=== PATIENT | female | born 1995 | race Caucasian/White ===

== ENCOUNTER 2023-11-06 16:05 | Observation (INO) | payer OTHER ==
[~2023-11-06] VITALS: Ht 167.6 cm; Wt 108.9 kg
[2023-11-06 16:21] VITALS: BP 111/65
[2023-11-06 16:50] LABS: Source, Urine Clean Catch
[2023-11-06 17:00] LABS: Appearance, Urine Hazy (Clear); Bilirubin, Urine Neg (Neg); Blood, Urine 1+ (Neg); Color, Urine Yellow (P-Yellow); Glucose Qualitative, Urine Neg (Neg); Ketones, Urine Neg (Neg); Leukocyte Esterase, Urine 2+ (Neg); Nitrite, Urine Pos (Neg); Protein, Urine Neg (Neg); Urobilinogen, Urine NORM (Normal)
[2023-11-06 17:16] LABS: Bacteria Many /hpf; Red Blood Cells, Urine 0-2 /hpf (0-2); Squamous Epithelial Cells Mod /hpf (Few); White Blood Cells, Urine 25-50 /hpf (0-5)
[2023-11-06 17:17] LABS: U Amphetamine Screen Not Detected; U Barbituate Screen Not Detected; U Benzodiazapine Screen Not Detected; U Buprenorphine Screen Not Detected; U Cannabinoids Screen Not Detected; U Cocaine Screen Not Detected; U Methadone Screen Not Detected; U Methamphetamine Screen Not Detected; U Opiates Screen Not Detected; U Oxycodone Screen Not Detected; U Phencyclidine Screen Not Detected
[2023-11-06] MEDS ORDERED: LORazepam 1 MG Tab PO ONE (17:55)
[2023-11-06] MEDS ORDERED: BUPRENORPHINE HC8 MG PO (18:58)
[2023-11-06] MEDS ORDERED: Calcium Carbon500 MG PO (18:58)
[2023-11-06] MEDS ORDERED: METF500 PO (18:58)
[2023-11-06] MEDS ORDERED: Prednisone10 MG PO (18:58)
[2023-11-06] MEDS ORDERED: LEVSOD100 PO (18:59)
[2023-11-06] MEDS ORDERED: CYMBALTA60 M1 PO (18:59)
[2023-11-06] MEDS ORDERED: TRAZ50 (19:00)
[2023-11-06] MEDS ORDERED: BENZ1 PO (19:00)
[2023-11-06] MEDS ORDERED: Hydroxyzine HCl50 MG PO (19:01)
[2023-11-06] MEDS ORDERED: SERT100 PO (19:03)
== END 2023-11-06 19:32 | disposition home or self-care (01) ==
LOC: ER 16:05 → EOR 16:06
PROVIDERS: Student in an Organized Health Care Education/Training Program; ADMIT Emergency Medicine
DX: F32.A Depression, unspecified (principal); F41.9 Anxiety disorder, unspecified
CPT/HCPCS: 81001; 81025; 87077; 87086; 87186; 93005; 93010; 99285-25; A9270; G0378

== ENCOUNTER 2023-11-07 02:04 | Observation (INO) | payer OTHER ==
[~2023-11-07] VITALS: Ht 167.6 cm; Wt 111.1 kg
[~2023-11-07 02:04] MED LIST: BENZ1 PO; BUPRENORPHINE HC8 MG PO; CYMBALTA60 M1 PO; Calcium Carbon500 MG PO; Hydroxyzine HCl50 MG PO; LEVSOD100 PO; METF500 PO; Prednisone10 MG PO; SERT100 PO; TRAZ50
[2023-11-07] MEDS ORDERED: Naloxone HCl 1MG / ML 2ML SYR ONE (02:13)
[2023-11-07] MEDS ORDERED: DiphenhydrAMINE HCl 50 MG/ML 1ML Vial IM ONE (03:00)
[2023-11-07] MEDS ORDERED: LORazepam 2 MG/ML 1ML Injection IM ONE (03:00)
[2023-11-07] MEDS ORDERED: Haloperidol Lactate Inj. 5 MG/ML Injection IM ONE ×2 (03:00→04:40)
[2023-11-07 03:07] LABS: Ethanol (Alcohol), Blood, Med <3 mg/dL; Salicylate <1.7 mg/dL (2.8-20.0)
[2023-11-07 03:23] LABS: Alanine Aminotransfer (ALT/SGP 16 U/L (12-78); Albumin, Blood 3.4 g/dL (3.4-5.0); Albumin/Globulin Ratio 0.9 (0.8-1.8); Alk Phos 69 U/L (50-136); Anion Gap 9 mmol/L (3-11); Aspartate Aminotrans (AST/SGOT 14 U/L (12-37); Bilirubin, Total 0.4 mg/dL (0.1-1.0); Blood Urea Nitrogen 20 mg/dL (8-24); Bun/Creatinine Ratio 28.3 (12.0-20.0); CO2, Blood 25 mmol/L (21-32); Calcium, Blood 8.9 mg/dL (8.5-10.1); Chloride, Blood 110 mmol/L (98-108); Creatinine, Blood 0.71 mg/dL (0.40-1.00); Globulin, Blood 3.7 g/dL (2.2-4.0); Glomerular Filtration Rate 117 (60-); Glucose, Blood 110 mg/dL (70-99); Potassium, Blood 4.3 mmol/L (3.5-5.5); Sodium, Blood 140 mmol/L (136-145); Total Protein, Blood 7.1 g/dL (6.4-8.2)
[2023-11-07 03:24] LABS: Acetaminophen, Random <2.0 ug/mL (10.0-30.0)
[2023-11-07 03:38] LABS: BASOPHILS ABSOLUTE AUTO 0.04 K/mm3 (0.00-0.23); BASOPHILS PERCENT AUTO 0 % (0-2); EOSINOPHILS ABSOLUTE AUTO 0.29 K/mm3 (0.00-0.68); EOSINOPHILS PERCENT AUTO 2 % (0-6); Hematocrit 37.3 % (33.0-51.0); IMMATURE GRAN ABSOLUTE AUTO 0.06 K/mm3 (0.00-0.10); IMMATURE GRAN PERCENT AUTO 1 % (0-1); LYMPHOCYTES ABSOLUTE AUTO 3.15 K/mm3 (0.84-5.20); LYMPHOCYTES PERCENT AUTO 25 % (21-46); MONOCYTES ABSOLUTE AUTO 0.99 K/mm3 (0.16-1.47); MONOCYTES PERCENT AUTO 8 % (4-13); Mean Corpuscular HGB 28.6 pg (26.0-34.0); Mean Corpuscular HGB Conc 32.2 g/dL (31.5-36.5); Mean Corpuscular Volume 89 fL (80-100); NEUTROPHILS ABSOLUTE AUTO 8.32 K/mm3 (1.96-9.15); NEUTROPHILS PERCENT AUTO 65 % (41-73); NRBC ABSOLUTE 0.02 K/mm3 (0.00-0.02); NRBC Auto 0.2 /100 WBC (0.0-0.2); RDW Coefficient Variation 13.5 % (11.7-14.2); RDW Standard Deviation 44.1 fL (35.1-46.3); Red Blood Cell Count 4.19 M/mm3 (3.80-5.20); White Blood Cell Count 12.85 K/mm3 (4.00-11.30)
[2023-11-07 03:46] LABS: Mean Platelet Volume 9.3 fL (9.1-12.4)
[2023-11-07 04:21] LABS: Platelet Count 358 K/mm3 (150-400)
[2023-11-07 06:00] VITALS: BP 131/70
== END 2023-11-07 16:50 | disposition home or self-care (01) ==
LOC: ER 02:04 → EOR 02:05
PROVIDERS: ADMIT Emergency Medicine
DX: F31.9 Bipolar disorder, unspecified (principal); F43.10 Post-traumatic stress disorder, unspecified; F60.3 Borderline personality disorder; F43.25 Adjustment disorder with mixed disturbance of emotions and conduct; T50.91 Poisoning by, adverse effect of and underdosing of multiple unspecified drugs, medicaments and biological substances; Z79.899 Other long term (current) drug therapy; Z79.84 Long term (current) use of oral hypoglycemic drugs
CPT/HCPCS: 80053; 85025; 96372; 99285-25; G0378; G0480; J1200; J1630; J2060; J2310